=== PATIENT | male | born 1995 | race Caucasian/White ===

== ENCOUNTER 2017-12-30 08:48 | Inpatient (IN) | payer BC, OTHER ==
[~2017-12-30] VITALS: Ht 170.2 cm; Wt 58.1 kg
--- NOTE | 2017-12-30 20:40 | NUR ---
INTAKE NOTE: Patient's first assessment done in intake office. Patient is a 22 year old male. Patient appears sad, with poor eye contact. Patient noted disheveled, unkempt, uncombed. Patient is alert and oriented x4. Patient reports NKA. VS: T: 98.3, BP: 131/86, HR: 83, RR: 18, RA O2SAT: 100%. Pain: "8/10 on legs". Patient reports History of Seizures "six months ago". Patient reported usin."Oxymorphone 60-80 mg via IV every day during one and half year. Last used Oxymorphone 60-80 mg via IV) on 12/30/2017 @ AM". 2. "Methamphetamine Salts via IV occasionally". Patient "can't recalls dosage". Last used "Methamphetamine Salts via IV unspecified dosage on 12/30/2017 @ AM". Explained rules and regulations of the unit. Will further assess patient on the unit.
[2017-12-30 20:45] VITALS: BP 131/86
[2017-12-30] MEDS ORDERED: ACETAMINOPHEN 325 MG TABLET PO PRN (20:45)
[2017-12-30] MEDS ORDERED: HYDROXYZINE PAMOATE 25 MG CAPSULE PO PRN (20:45)
[2017-12-30] MEDS ORDERED: CLONIDINE HCL 0.1 MG TABLET PO PRN (20:45)
[2017-12-30] MEDS ORDERED: MIRALAX 17 GM POWD.PACK PO PRN (20:45)
[2017-12-30] MEDS ORDERED: LORAZEPAM 1 MG TABLET PO PRN (20:45)
[2017-12-30] MEDS ORDERED: BUPRENORPHINE HCL 2 MG TAB.SUBL SL PRN (20:45)
[2017-12-30] MEDS ORDERED: ONDANSETRON 4 MG/2 ML VIAL IM PRN (20:45)
[2017-12-30] MEDS ORDERED: MAG HYDROX/AL HYDROX/SIMETH 30 ML LIQUID UDC PO PRN (20:45)
[2017-12-30] MEDS ORDERED: ONDANSETRON ODT 4 MG TAB.RAPDIS SL PRN (20:45)
[2017-12-30] MEDS ORDERED: METHOCARBAMOL 750 MG TABLET PO PRN (20:45)
[2017-12-30] MEDS ORDERED: IBUPROFEN 600 MG TABLET PO PRN (20:45)
[2017-12-30] MEDS ORDERED: MAGNESIUM HYDROXIDE 30 ML LIQUID UDC PO PRN (20:45)
[2017-12-30] MEDS ORDERED: LOPERAMIDE HCL 2 MG CAPSULE PO PRN ×2 (20:45)
[2017-12-30] MEDS ORDERED: DICYCLOMINE HCL 20 MG TABLET PO PRN (20:45)
--- NOTE | 2017-12-30 20:45 | NUR ---
ADMISSION NOTE New patient is a 22year old male admitted to [facility] on 12/30/2017 @2045 for Opioid and Methamphetamine withdrawal. Patient is ambulatory with steady gait. Height: 67 inches; Weigh by standing scale: 128 lbs. Patient is alert and oriented x4. Patient reports NKA, is on Regular Diet, Full Code, is on Fall and Seizures Precautions. Patient reports withdrawal-induced seizures history on "six months ago". PMH: Anxiety, Depression, Seizures History, Fractures on Left Foot on 2015, and on Left forearm "8 months ago". UDS test provided. Respirations even and unlabored. Lung Sounds are clear throughout. Patient denies SOB, cough, and chest pain. Bowel sounds active in all four quadrants. Skin is warm and dry to touch. Patient has acne on his face: forehead, cheeks, and chin. Patient denies SI/HI. Substance Use History: 1."Oxymorphone 60-80 mg via IV every day during one and half year. Last used Oxymorphone 60-80 mg via IV) on 12/30/2017 @ AM". 2. "Methamphetamine Salts via IV occasionally". Patient "can't recalls dosage". Last used "Methamphetamine Salts via IV unspecified dosage on 12/30/2017 @ AM". Patient reports Tx History at "[place], [place] six months ago". But after "45 days started using drugs". Patient doesn't have Primary Care Provider. Patient did not bring home medications. COWS 15. Patient presented anxious, agitated, with tremors, restlessness, nervousness, sweats, c/o abdominal pain, nasal congestion, body aches, and fatigue. Doctor Singh Astudillo MD assessed patient. Orders placed. Patient was educated on plan of care and medication regimen. Patient was able to verbalize understanding. Patient oriented to his room, Nurse Call Light, and [facility] Floor. Encouraged fluids as tolerated. Encouraged to attend activities groups. All needs met. Safety measures on place. Call light within reach, bed in lowest position and locked, padded rails up bilaterally rails up bilaterally. Will continue to monitor closely. Addendum: 12/31/17 at 0718 by RUTH MUHAMMAD RN PMH: INCLUDED HEP C, ADHD
[2017-12-30] MEDS ORDERED: BUPRENORPHINE HCL 2 MG TAB.SUBL SL SCH (21:00)
[2017-12-30] MEDS ORDERED: LORAZEPAM 1 MG TABLET PO SCH (21:00)
[2017-12-30] MEDS: GABAPENTIN 300 MG CAPSULE PO SCH (21:38)
[2017-12-30] MEDS: diphenhydrAMINE 50 MG CAPSULE PO PRN (21:39)
--- NOTE | 2017-12-30 21:39 | NUR ---
PRN BENADRYL 50 MG 1 CAPSULE PO ADMINISTRATION PRN BENADRYL 50 MG PO ADMINISTRATED FOR INSOMNIA ORDERED. PATIENT TOLERATED WELL. ALL SAFETY MEASURES IN PLACE: CALL LIGHT WITHIN REACH, BED LOCKED IN LOWEST POSITION, PADDED BED RAILS UP X2. WILL CONTINUE TO MONITOR CLOSELY.
[2017-12-30 22:07] LABS: BASOPHILS # (AUTO) 0.1 K/uL (0.0-8.0); BASOPHILS % (AUTO) 0.8 % (0.0-2.0); EOSINOPHILS # (AUTO) 0.8 K/uL (0.0-0.7); HEMATOCRIT 38.3 % (36.7-47.1); HEMOGLOBIN 13.4 g/dL (12.5-16.3); LYMPHOCYTES # (AUTO) 1.9 K/uL (20.0-40.0); LYMPHOCYTES % (AUTO) 27.6 % (20.5-51.5); MEAN CORPUSCULAR HEMOGLOBIN 29.8 uug (23.8-33.4); MEAN CORPUSCULAR HGB CONC 35 g/dL (32.5-36.3); MEAN CORPUSCULAR VOLUME 85.3 fL (73.0-96.2); MONOCYTES # (AUTO) 0.4 K/uL (2.0-10.0); MONOCYTES % (AUTO) 6.2 % (0.0-11.0); NEUTROPHILS # (AUTO) 3.7 K/uL (1.8-8.9); NEUTROPHILS % (AUTO) 53.4 % (38.5-71.5); PLATELET COUNT (AUTO) 264 K/uL (152-348); WHITE BLOOD COUNT (AUTO) 6.8 K/uL (3.6-10.2)
[2017-12-30 22:17] LABS: ALANINE AMINOTRANSFERASE 252 U/L (16-63); ALKALINE PHOSPHATASE 140 U/L (50-136); ASPARTATE AMINOTRANSFERASE 109 U/L (15-37); BILIRUBIN,TOTAL 0.7 mg/dL (0.2-1.0); CARBON DIOXIDE 30 mmol/L (21-32); CHLORIDE 104 mmol/L (98-107); CREATININE 0.8 mg/dL (0.6-1.3); GLUCOSE 104 mg/dL (74-106); POTASSIUM 4.1 mmol/L (3.5-5.1); TOTAL PROTEIN, SERUM 7.4 g/dL (6.4-8.2); UREA NITROGEN, BLOOD 11 mg/dL (7-18)
[2017-12-30 22:25] LABS: *AMPHETAMINE, URINE POSITIVE (NEGATIVE); *BARBITURATE, URINE NEGATIVE (NEGATIVE); *CANNABINOID, URINE POSITIVE (NEGATIVE); *COCCAINE, URINE NEGATIVE (NEGATIVE); *OPIATE, URINE POSITIVE (NEGATIVE); *PHENCYCLIDINE SCREEN,URINE NEGATIVE (NEGATIVE)
--- NOTE | 2017-12-30 22:39 | NUR ---
RE-ASSESSMENT PRN Benadryl 50 mg PO administrated for insomnia @2138 as ordered was effective. Patient is sleeping. RR 16. Respirations are even and unlabored. All needs met. Safety measures in place: Call light within reach, bed is locked in lowest position, padded bed rails up bilaterally. Will continue to monitor closely.
--- NOTE | 2017-12-31 | NUR ---
VS REFUSED, COWS/CIWA DEFERRED. ALL NEEDS MET. SAFETY MEASURES IN PLACE: CALL LIGHT WITHIN REACH,BED IN LOWEST POSITION LOCKED, PADDED BED RAILS UP BILATERALLY. WILL TO CONTINUE TO MONITOR CLOSELY. Addendum: 12/31/17 at 0451 by RUTH MUHAMMAD RN RESPIRATIONS ARE EVEN AND UNLABORED. RR:16.
[2017-12-31 01:43] LABS: ETHANOL < 3 MG/DL (0-0)
[2017-12-31 03:00] VITALS: BP 111/69
[2017-12-31 04:00] VITALS: BP 111/69
--- NOTE | 2017-12-31 07:18 | NUR ---
END OF SHIFT NOTE: Patient presented for Opioid/ Oxymorphone and Methamphetamine withdrawal. 5 day Subutex Taper ordered , and will started today. Patient reports History of withdrawal-induced seizures "six months ago". Patient reports NKA, is on Regular Diet, Full Code, is on Fall and Seizures Precautions. PMH: Hep. C, ADHD, Anxiety, Depression, Seizures History, Fractures on Left Foot on 2016, and on Left forearm "8 months ago" Patient is alert and oriented x4. He is appears sad and worry with poor eye contact. Patient 's c/o feelings of low self-esteem, easily overwhelmed, increased anxiety, depression, and irritability. Patient denied SI/HI. Patient encouraged to expresses her feelings. Emotional support provided. Education provided to use of Relaxation Techniques: deep breathing exercises, guided imagery,and visualization. Patient noted unshaven, disheveled, unkempt, and uncombed. Education in safety and hygiene care provided. Encouraged to independently perform hygiene care. COWS=15 @2045, and COWS=9 @0400. VS refused, and COWS deferred @0000. Patient presented with anxiety, agitation, nervousness, nasal congestion, restlessness, tremors, insomnia, sweating, and body aches. PRN Benadryl 50 mg PO administrated for insomnia @2139 as ordered was effective. Calm and safety environment with minimized noises was provided. Patient slept 7 hours, intake 500 ml, voided x1. Encouraged to fluid intake as tolerated. Encourage to attended groups activities. All needs met. Safety measures in the place: Call light within reach, bed in the lowest position and locked, padded rails up x2. Patient endorsed to day shift nurse.
--- NOTE | 2017-12-31 07:26 | NUR ---
Start of Shift Notes: Received endorsement from night nurse. Patient is a 22 year old male admitted for opiate withdrawal. He was placed on a 5-day Subutex taper that will be starting this AM. Received patient in his room. Laying in bed with eyes closed. Wakes up when his name is called then goes back to sleep. Affect is flat. Room appears messy and unkept. Encouraged maintenance of personal hygiene and space. Educated patient on his current plan of care for the day and his medication regimen. Encouraged oral fluid intake and encouraged group participation to learn new skills to prevent relapse.
[2017-12-31 08:00] VITALS: BP 104/60
[2017-12-31] MEDS ORDERED: TUBERCULIN,PURIF.PROT.DERIV. 5 TU/0.1 ML TEST ID ONE (09:00)
[2017-12-31] MEDS: GABAPENTIN 300 MG CAPSULE PO SCH ×2 (09:40→21:05)
[2017-12-31] MEDS: BUPRENORPHINE HCL 2 MG TAB.SUBL SL SCH ×3 (09:40→21:05)
[2017-12-31 12:00] VITALS: BP 115/60
[2017-12-31 16:00] VITALS: BP 118/63
--- NOTE | 2017-12-31 19:04 | NUR ---
START OF SHIFT Endorsed patient is a 22year old male admitted to [facility] for Opioid and Methamphetamine withdrawal, continues 5 day Subutex taper. Patient tolerated well. Patient is alert and oriented x4. He is lying in the bed and watching TV the all day per nurse report. Patient appears to be sad, worry, with avoidant eye contact, apathetic, and hypoactive. Last CIWA =10 @1600. Patient presents with withdrawal symptoms such as anxiousness, agitation, c/o nervousness, sweating, tremors, body aches, myalgia, and restlessness. No PRN Medications administrated during last day shift. Safe and calm environment with minimized noises was provided. Encouraged to fluid intake as tolerated. Encouraged to attended groups activities. All needs met. Safety measures in the place: Call light within reach, bed in the lowest position locked, padded rails up x2. Patient endorsed by day shift nurse.
--- NOTE | 2017-12-31 19:04 | NUR ---
End of Shift Notes: Patient initiated his 5-day Subutex taper as ordered. No adverse reactions noted. Patient is tolerating taper well. VS monitored closely. No significant abnormalities noted. Withdrawal symptoms were closely monitored. Initial COWS 18, patient presented with gross tremors, anxiety, agitation, chills, restlessness, myalgia and hot flashes. Last COWS 10. Per patient, Subutex has been effective in reducing his withdrawal symptoms. Patient stayed in his room for most of the shift except when smoking. Compliant with care and treatment. Unable to participate in group and activities due to his withdrawal symptoms. All needs met and attended. Will continue to monitor closely.
[2017-12-31 20:00] VITALS: BP 126/70
[2017-12-31] MEDS: diphenhydrAMINE 50 MG CAPSULE PO PRN (21:05)
--- NOTE | 2017-12-31 21:05 | NUR ---
PRN BENADRYL 50 MG 1 CAP PO ADMINISTRATION Patient c/o insomnia. PRN Benadryl 50 mg 1 cap PO administrated with full glass of water as ordered. Patient tolerated well. All needs met. Safety measures on place. Call light within reach, bed in lowest position locked, padded rails up bilaterally. Will continue to monitor closely.
--- NOTE | 2017-12-31 22:05 | NUR ---
RE-ASSESSMENT Patient is sleeping. RR 16. Respirations even and unlabored. PRN Benadryl 50 mg 1 cap PO administrated for insomnia @2032 as ordered was effective. All needs met. Safety measures on place. Call light within reach, bed in lowest position locked, padded rails up bilaterally. Will continue to monitor closely.
[2018-01-01] VITALS: BP 123/73
[2018-01-01 04:00] VITALS: BP 116/67
--- NOTE | 2018-01-01 07:03 | NUR ---
END OF SHIFT NOTE: Patient is a 22 year old male continues 5 day Subutex Taper ordered for Opioid/ Oxymorphone and Methamphetamine withdrawal, and tolerated well. Patient remains compliant with treatment, medications, and diet regime. Patient is alert and oriented x4. The patient is disheveled, unkempt, and uncombed. His clothes are dirty and patient refused to change them. Education in safety and hygiene care provided. He was encouraged to independently perform hygiene care. Patient encouraged to expresses his feelings. Patient shows signs and symptoms of emotional instability. Emotional support provided. Education provided to use of Relaxation Techniques: deep breathing exercises, guided imagery, and visualization. Education in safety and hygiene care provided. Encouraged to independently perform hygiene care. Initial COWS=14 @2000, COWS=9 @0000. Latest COWS=8 @0400. During the my shift patient presented with moderate withdrawal symptoms of anxiety, agitation, nervousness, stomach cramps, tremors, sweating, nasal congestion, and restlessness. PRN Benadryl 50 mg PO administrated for insomnia @2105 as ordered was effective. Calm and safety environment with minimized noises was provided. Patient slept 9 hours, intake 1,730 ml, voided x2, stool x1. Encouraged to fluid intake as tolerated. Encourage to attended groups activities. All needs met. Safety measures in the place: Call light within reach, bed in the lowest position and locked, padded rails up x2. Patient endorsed to day shift nurse.
--- NOTE | 2018-01-01 07:05 | NUR ---
Start of Shift Coil Binder received report on 22 year old male admitted on 12/30/17 of medical management of Opiate and Methamphetamine withdrawals. Pt reports NKA, full code and regular diet. PMH of Hep C and PPH of anxiety and ADHD. Pt has a history of seizures, last occurring 6 months ago. Pt currently on Subutex taper, tolerating well, last COWS 8 recorded at 0400, per NOC report. Pt received Benadryl(insomnia) PRN on NOC. Coil Binder encounters pt in pts room resting with eyes closed and even and unlabored respirations. Rise and fall of chest noted. Bed in low position with wheels locked and side rails up x2. Will continue to monitor, support and encourage according to plan of care.
[2018-01-01 08:59] VITALS: BP 113/62
[2018-01-01] MEDS ORDERED: BUPRENORPHINE HCL 2 MG TAB.SUBL SL SCH (09:00)
[2018-01-01] MEDS: GABAPENTIN 300 MG CAPSULE PO SCH ×3 (09:30→20:52)
[2018-01-01 11:11] LABS: HEPATITIS B SURFACE AG Negative (Negative)
[2018-01-01 12:17] VITALS: BP 109/59
--- NOTE | 2018-01-01 14:00 | NUR ---
Mid-Shift Endorsement Utility Worker [employer] received report on 22 year old male admitted on 12/30/17 of medical management of Opiate and Methamphetamine withdrawals. Pt reports NKA, full code and regular diet. PMH of Hep C and PPH of anxiety and ADHD. Pt has a history of seizures, last occurring 6 months ago. Pt currently on Subutex taper, tolerating well, last COWS 6 recorded at 1600. No PRN medication administered by credit underwriter. Pt A/O x4, makes his needs known. Clear speech and thought process. Blunted affect with depressed mood. Pt has isolated to room and self. Withdrawn and guarded. Bed in low position with wheels locked and side rails up x2. Will continue to monitor, support and encourage according to plan of care.
--- NOTE | 2018-01-01 14:05 | NUR ---
Continuity of care Client is in bed, a/o x 4. he presents with irritable, anxious mood, flat affect. Will continue to monitor.
[2018-01-01 16:00] VITALS: BP 137/74
[2018-01-01] MEDS: BUPRENORPHINE HCL 2 MG TAB.SUBL SL SCH ×2 (16:36→20:52)
--- NOTE | 2018-01-01 19:18 | NUR ---
END OF SHIFT Endorse client to incoming nurse, client is in bed, a/o x 4. client continues to presents with anxious mood and flat affect. Client report restless legs, chills, and decreased appetite. Client was not compliant with group therapy. Last COWS 10 @ 1600. Client consumed ~75% of meals. Adequate PO fluid intake 2000mL, void x 2. Call light within reach. Will continue to monitor.
--- NOTE | 2018-01-01 19:18 | NUR ---
START OF SHIFT NOTE: Endorsed 26 year old male continues ordered 5 day Subutex taper for Opioid/Oxymorphone and Methamphetamine withdrawal. Patient is alert and oriented x4, reports NKA, is on Full Code, is on Fall and Seizures Precautions. Patient reports History of withdrawal-induced seizures "6 months ago". Patient appears anxious, worry, sad with flat affect. Patient 's c/o feelings of loneliness, increased anxiety, depression, and irritability. Patient denied SI/HI. Emotional support provided, and patient 's reassuring. Patient noted unshaven, disheveled, and uncombed. His clothes are scattered all over the floor. Education provided in safety and hygiene care. Patient's encouraged to independently perform hygiene care. CIWA=10 @1600. During day shift patient presented with anxiety, agitation, nervousness, nasal congestion, restlessness, tremors, sweating, and body aches. No PRN Medications given per day shift nurse report. Patient remains compliant with treatment, medications and diet regime. Encouraged to fluid intake as tolerated. Encourage to attended groups activities. All needs met. Safety measures in place: Call light within reach, bed is locked in lowest position, padded bed rails up bilaterally. Patient endorsed by day shift nurse. Will continue to monitor closely.
[2018-01-01 20:00] VITALS: BP 126/75
[2018-01-01] MEDS: BACLOFEN 10 MG TABLET PO SCH (20:52)
[2018-01-01] MEDS: diphenhydrAMINE 50 MG CAPSULE PO PRN (20:52)
--- NOTE | 2018-01-01 20:52 | NUR ---
PRN BENADRYL 50 MG 1 CAP PO ADMINISTRATION Patient c/o insomnia. PRN Benadryl 50 mg 1 capsule PO administrated with full glass of water as ordered. Patient tolerated well. All needs met. Safety measures on place. Call light within reach, bed in lowest position locked, padded rails up bilaterally. Will continue to monitor closely.
[2018-01-01] MEDS ORDERED: LORAZEPAM 1 MG TABLET PO SCH (21:00)
[2018-01-01] MEDS ORDERED: CLONIDINE HCL 0.1 MG TABLET PO SCH (21:00)
--- NOTE | 2018-01-01 21:52 | NUR ---
RE-ASSESSMENT Patient is sleeping. Respirations even and unlabored. RR 16. PRN Benadryl 1 cap PO administrated to patient @2051 for insomnia was effective. All needs met. Safety measures on place. Call light within reach, bed in lowest position and locked, padded rails up bilaterally. Will continue to monitor closely.
[2018-01-02] VITALS: BP 130/76
[2018-01-02 04:00] VITALS: BP 124/81
--- NOTE | 2018-01-02 07:02 | NUR ---
END OF SHIFT NOTE: Presented patient is a 26 year old male admitted for Opioid/Oxymorphone and Methamphetamine withdrawal. He is continues 5 Day Subutex Taper. Patient is alert and oriented x4. Patient appears anxious, fearful, worry with flat affect, and depressed. Encouraged to expresses his feelings. Education provided to use of Relaxation Techniques: deep breathing exercises, guided imagery, and visualization. Initial CIWA=12 @2000, CIWA=6 @0000. Latest CIWA=10 @0400: Patient presented with withdrawal symptoms of anxiety, agitation, nervousness, abdominal cramps, tremors, diaphoresis, nasal congestion, and restlessness. PRN Benadryl 50 mg PO administrated for insomnia @2051 as ordered was effective. Calm and safety environment with minimized noises was provided. Patient slept 8 hours, intake 1,076 ml, voided x2, stool x1. Encouraged to fluid intake as tolerated. Encourage to attended groups activities. All needs met. Safety measures in the place: Call light within reach, bed in the lowest position and locked, padded rails up x2. Patient endorsed to day shift nurse.
--- NOTE | 2018-01-02 07:47 | NUR ---
Start of Shift Notes: Received endorsement from night nurse. Patient is a 22 year old male admitted for opiate withdrawal. He was placed on a 5-day Subutex taper that will be starting this AM. Received patient in his room. Laying in bed with eyes closed. Wakes up when his name is called then goes back to sleep. Affect is flat. Room appears messy and unkept Candy wrappers on the floor and dirty linen on the floor. Patient appears dishveled. Encouraged maintenance of personal hygiene and space. Educated patient on his current plan of care for the day and his medication regimen. Encouraged oral fluid intake and encouraged group participation to learn new skills to prevent relapse. Addendum: 01/03/18 at 0701 by BRIE MEAD LVN Error in charting. Patient already started on 5-day Subutex taper but also on 4-day Ativan taper.
[2018-01-02 08:00] VITALS: BP 132/85
[2018-01-02] MEDS ORDERED: LORAZEPAM 1 MG TABLET PO SCH ×3 (09:00→21:00)
[2018-01-02] MEDS: BACLOFEN 10 MG TABLET PO SCH ×2 (09:03→21:19)
[2018-01-02] MEDS: BUPRENORPHINE HCL 2 MG TAB.SUBL SL SCH ×3 (09:03→21:20)
[2018-01-02] MEDS: GABAPENTIN 300 MG CAPSULE PO SCH ×2 (09:03→14:07)
[2018-01-02 12:00] VITALS: BP 132/83
[2018-01-02] MEDS ORDERED: METH-406 PO (13:30)
[2018-01-02] MEDS ORDERED: DIPH50CA37 PO (13:30)
[2018-01-02] MEDS ORDERED: CLON0.1T14 PO (13:30)
[2018-01-02] MEDS ORDERED: GABA-534 PO ×2 (13:30)
[2018-01-02] MEDS ORDERED: IBUP-1955 PO (13:30)
[2018-01-02] MEDS ORDERED: DICY20TA28 PO (13:30)
[2018-01-02] MEDS ORDERED: HYDR-3895 PO (13:30)
--- NOTE | 2018-01-02 13:30 | NUR ---
Mid Shift Notes: Patient is in his room. Laying down in bed with food next to him. Gummy bears noted on the bed. Easily arousable to touch. Breathing even and unlabored. COWS 14/CIWA 10 at 1200.
[2018-01-02 16:00] VITALS: BP 117/66
--- NOTE | 2018-01-02 19:00 | NUR ---
End of Shift Notes: Patient continues to be on 5-day Subutex and 3-day Ativan taper as ordered. No adverse reactions noted. Patient is tolerating taper well. VS monitored closely. No significant abnormalities noted. Withdrawal symptoms were closely monitored. Initial COWS 18/CIWA 14, patient presented with gross tremors, anxiety, agitation, chills, restlessness, myalgia and hot flashes. Last COWS 9/CIWA 8. Per patient, Subutex has been effective in reducing his withdrawal symptoms. Patient stayed in his room sleeping for most of the shift. Appetite fair. Patient states I just want to sleep this through. Socialization with his peers was encouraged. Compliant with care and treatment. Requires encouragement to participate in group and activities due to his withdrawal symptoms. All needs met and attended. Will continue to monitor closely.
--- NOTE | 2018-01-02 19:30 | NUR ---
START OF SHIFT Received 22 year old male patient admitted on 12/30/17 for Opiate and methamphetamine withdrawal. Pt is alert and oriented x4. He is noted to be anxious, restless, disheveled, irritable and fidgety. He complains of body aches. He continues on a 5 day Subutex taper and is tolerating well. Per endorsement, he did not receive or request PRN medications. Last COW:9, CIWA:8 at 1600. Breathing is even and unlabored, safety measures in place. Will continue to monitor.
[2018-01-02 20:00] VITALS: BP 137/82
[2018-01-02] MEDS ORDERED: GABAPENTIN 300 MG CAPSULE PO SCH (21:00)
[2018-01-02] MEDS: diphenhydrAMINE 50 MG CAPSULE PO PRN (22:03)
--- NOTE | 2018-01-02 22:03 | NUR ---
PRN BENADRYL Pt complains of insomnia. PRN Benadryl administered as ordered. Breathing even and unlabored, safety measures in place. Will monitor effectiveness.
--- NOTE | 2018-01-02 23:03 | NUR ---
PRN BENADRYL REASSESSMENT PRN medication effective. Pt is lying in bed with eyes closed noted to be asleep. Breathing is even and unlabored, safety measures in place. Will continue to monitor.
[2018-01-03] VITALS: BP 136/90
[2018-01-03 04:00] VITALS: BP 126/85
--- NOTE | 2018-01-03 06:57 | NUR ---
END OF SHIFT Pt is a 22 year old male patient admitted on 12/30/17 for Opiate and methamphetamine withdrawal. He remains alert and oriented x4. He was noted to be anxious, restless, disheveled, irritable and fidgety during the shift. He continues on a 5 day Subutex taper and 4 day Ativan and is tolerating well. At 2203 he received PRN Benadryl for insomnia. He slept a total of 8 hrs, Intake:300mL, Void: x1, BM:0, Lasts COW:9, CIWA:7 at 2000. Breathing is even and unlabored, safety measures in place. Endorsed to AM shift.
--- NOTE | 2018-01-03 07:00 | NUR ---
Start of Shift Notes: Received endorsement from night nurse. Patient is a 22 year old male admitted for opiate withdrawal. He was placed on a 5-day Subutex taper and 4-day Ativan taper. Received patient in his room. Laying in bed with eyes half closed. Wakes up when his name is called then goes back to sleep. Affect is flat. Room appears messy and unkept Candy wrappers on the floor. Patient appears disheveled. Encouraged maintenance of personal hygiene and space. Educated patient on his current plan of care for the day and his medication regimen. Encouraged oral fluid intake and encouraged group participation to learn new skills to prevent relapse.
[2018-01-03 08:00] VITALS: BP 123/78
[2018-01-03] MEDS: BUPRENORPHINE HCL 2 MG TAB.SUBL SL SCH ×2 (08:26→21:00)
[2018-01-03] MEDS: BACLOFEN 10 MG TABLET PO SCH (08:27)
[2018-01-03] MEDS: GABAPENTIN 300 MG CAPSULE PO SCH ×3 (08:27→21:00)
[2018-01-03] MEDS: LORAZEPAM 1 MG TABLET PO SCH ×2 (08:27→21:00)
[2018-01-03] MEDS: KETOROLAC TROMETHAMINE 30 MG INJ IM PRN ×2 (10:13→21:01)
--- NOTE | 2018-01-03 10:13 | NUR ---
Toradol 30 mg IM given: Patient complained of 8/10 low back pain. Non-pharmacological interventions provided but ineffective. Medicated patient with Toradol 30 mg IM as ordered. Will monitor for effectiveness.
--- NOTE | 2018-01-03 10:43 | NUR ---
Re-assessment: Toradol Patient verbalizes PL is now 3/10 from 05/14. PRN Toradol was effective in reducing low back pain.
[2018-01-03 12:00] VITALS: BP 131/86
[2018-01-03] MEDS: BACLOFEN 20 MG TABLET PO SCH ×2 (14:07→21:00)
[2018-01-03] MEDS: LIDOCAINE 5% PATCH TD SCH (14:08)
[2018-01-03 16:00] VITALS: BP 126/77
--- NOTE | 2018-01-03 19:00 | NUR ---
End of Shift Notes: Patient continues to be on 5-day Subutex and 3-day Ativan taper as ordered. No adverse reactions noted. VS monitored closely. No significant abnormalities noted. Withdrawal symptoms were closely monitored. Initial COWS 11/CIWA 10, patient presented with gross tremors, anxiety, agitation, chills, restlessness, and myalgia. Last COWS 9 /CIWA 8 . Per patient, Subutex and Ativan has been effective in reducing his withdrawal symptoms. PRN Toradol 30 mg IM given to patients right deltoid at 1013 for complain of 8/10 myalgia with help after 30 minutes. Patient was encouraged to shower, shave and keep his room tidy as well as to participate in group and activities but stayed in his room sleeping. Appetite good. Compliant with care and treatment. Requires encouragement to participate in group and activities due to his withdrawal symptoms. All needs met and attended. Will continue to monitor closely.
--- NOTE | 2018-01-03 19:20 | NUR ---
START OF SHIFT Patient is a 22-year-old male admitted on 12/30/17 for oxymorphone and meth withdrawal. Patient is currently on a 5-day Subutex taper and modified Ativan taper, tolerating well. Patients last COWS was 9, last CIWA 8 per day shift nurse. Patient received PRN Toradol IM for back pain, noted as effective. Heat packs were also provided to patient during the day. Upon assessment, patient is alert and oriented x3. Patient appears disheveled and unshaven, clothes have visible stains. Patients room is disorganized, clothes strewn about counters and floor. Patients bed is unmade, very dirty with visible food/beverage spills. Patient states "my back feels better but my anxiety is through the roof. Can I get something to help me sleep tonight?" Patient is on fall and seizure precautions, with seizure history. Safety measures in place, side rails up x2, bed locked in low position, call light within reach. Will continue to monitor.
[2018-01-03 20:00] VITALS: BP 154/95
--- NOTE | 2018-01-03 21:01 | NUR ---
PRN TORADOL Patient reports lower back pain 10/10, describing the pain as "tightness, aching." PRN Toradol IM given in patient's left deltoid. Safety measures in place, call light within reach. Heat packs were also provided by SN. Will monitor for effectiveness.
--- NOTE | 2018-01-03 21:31 | NUR ---
PRN TORADOL REASSESSMENT Patient reports lower back pain 3/10 on scale. PRN Toradol noted to be effective. Safety measures in place, call light within reach. Will continue to monitor.
[2018-01-03] MEDS: diphenhydrAMINE 50 MG CAPSULE PO PRN (22:38)
--- NOTE | 2018-01-03 22:38 | NUR ---
PRN ROBAXIN & BENADRYL Patient reports lower back pain 8/10 on pain scale. Patient reports difficulty sleeping and is requesting sleep aid. PRN Robaxin given PO, PRN Benadryl given PO. Safety measures in place, call light within reach. Will monitor for effectiveness.
--- NOTE | 2018-01-03 23:38 | NUR ---
PRN ROBAXIN & BENADRYL REASSESSMENT Patient reports "feeling sleepy" and reports lower back pain is currently 4/10 on pain scale. PRN meds effective. Safety measures in place, call light within reach. Will continue to monitor.
[2018-01-04] VITALS: BP 141/85
[2018-01-04 04:00] VITALS: BP 129/78
--- NOTE | 2018-01-04 04:00 | NUR ---
COWS & CIWA DEFERRED COWS and CIWA deferred due to patient sleeping; to be assessed and scored while patient is awake. Patient's respirations are even and unlabored, 16/min. Safety measures in place, side rails up x2, bed locked in low position, call light within reach. Will continue to monitor.
--- NOTE | 2018-01-04 07:10 | NUR ---
END OF SHIFT Patient is a 22-year-old male admitted on 12/30/17 for oxymorphone and meth withdrawal. Patient is currently on a 5-day Subutex taper and modified Ativan taper, tolerating well. Patients last COWS was 9, last CIWA 8. Patient received PRN Toradol IM for back pain as well as PRN Benadryl PO and Robaxin PO; all noted as effective. Heat packs were also provided to patient during shift superintendent caustic cresylate by SN. Patient slept for 8 hours, total intake of 1,000mL, void x2, stool x0. Patient is on fall and seizure precautions, with seizure history. Safety measures in place, side rails up x2, bed locked in low position, call light within reach. Will endorse to day shift.
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
[2018-01-04 08:32] VITALS: BP 148/87
[2018-01-04] MEDS ORDERED: LORAZEPAM 1 MG TABLET PO SCH (09:00)
[2018-01-04] MEDS ORDERED: BUPRENORPHINE HCL 2 MG TAB.SUBL SL SCH (09:00)
[2018-01-04] MEDS: LIDOCAINE 5% PATCH TD SCH (09:43)
[2018-01-04] MEDS: BACLOFEN 20 MG TABLET PO SCH ×3 (09:43→20:45)
[2018-01-04] MEDS: GABAPENTIN 300 MG CAPSULE PO SCH ×3 (09:43→20:45)
[2018-01-04] MEDS: KETOROLAC TROMETHAMINE 30 MG INJ IM PRN ×2 (11:23→21:34)
--- NOTE | 2018-01-04 11:23 | NUR ---
PRN Toradol 30mg IM administered to R deltoid for lower back pain 06/14. Call light within reach.
--- NOTE | 2018-01-04 11:53 | NUR ---
Reassess PRN Toradol 30mg IM, client reports a decrease in pain on lower back pain 3/10, but tolerable.
[2018-01-04 12:55] VITALS: BP 139/87
[2018-01-04 16:55] VITALS: BP 124/78
--- NOTE | 2018-01-04 19:05 | NUR ---
END OF SHIFT Endorse client to incoming nurse, client is in room, a/o x 4, client continues to present with depressed mood, flat affect, moist skin, decreased appetite, and fatigue. Adequate PO fluid [id number], void x 3. Client consumes 50-75% of meals. Client is not compliant with group therapy. Client completed 5 day Subutex taper, Modified 3 day Ativan taper. Last COWS 6/CIWA 5 @ 1600. Call light within reach.
[2018-01-04 20:00] VITALS: BP 133/88
--- NOTE | 2018-01-04 20:00 | NUR ---
START OF SHIFT NOTE RECEIVED REPORT FROM DAY SHIFT NURSE. PATIENT IS A 22 YEAR OLD MALE ADMITTED FOR OPIATE /METH WITHDRAWAL. PATIENT COMPLETED SUBUTEX AND ATIVAN TAPER. PATIENT IS MEDICALLY CLEARED TO DISCHARGE TOMORROW.PATIENT WAS GIVEN PRN TORADOL IM DUE TO CHRONIC BACK PAIN. PATIENT DID NOT ATTEND GROUP. IN HIS ROOM MOST OF THE SHIFT. LAST COWS 6 AND CIWA 5. RECEIVED PATIENT IN THE ROOM, RESTING. PATIENT'S ROOM DIRTY, GARBAGE AROUND THE ROOM AND CLOTHES THROWN ON FLOOR. PATIENT WITH FLAT AFFECT , DISHEVELED AND C/O LOWER BACK PAIN . SAFETY MEASURES IN PLACE. CALL LIGHT IN REACH. WILL CONTINUE TO MONITOR.
[2018-01-04] MEDS: diphenhydrAMINE 50 MG CAPSULE PO PRN (20:50)
--- NOTE | 2018-01-04 20:50 | NUR ---
PRN BENADRYL ADMINISTRATION PATIENT REQUESTS FOR SLEEP AID. WILL MONITOR FOR EFFECTIVENESS
--- NOTE | 2018-01-04 21:34 | NUR ---
PRN TORADOL IM ADMINISTRATION PATIENT C/O LOWER BACK PAIN 05/14. WILL MONITOR FOR EFFECTIVENESS
--- NOTE | 2018-01-04 22:04 | NUR ---
PRN TORADOL RE-ASSESSMENT PATIENT STATES TORADOL HELPFUL HE WAS WALKING TOWARDS HIS ROOM. HE JUST CAME BACK FROM THE PATIO SMOKING. PAIN LEVEL 2/10, TOLERABLE.
--- NOTE | 2018-01-04 22:34 | NUR ---
MASHA RO RE-ASSESSMENT PATIENT STATES TORADOL HELPFUL HE WAS WALKING TOWARDS HIS ROOM. HE JUST CAME BACK FROM THE PATIO SMOKING. PAIN LEVEL 2/10, TOLERABLE. Addendum: 01/05/18 at 0721 by YOKASTA ORNELAS LVN ERROR : TIME OF ASSESSMENT AT 2204
--- NOTE | 2018-01-04 23:30 | NUR ---
PRN BENADRYL R-ASSESSMENT PATIENT IN BED WITH EYES CLOSED. RESPIRATION EVEN AND UNLABORED. WILL CONTINUE TO MONITOR
--- NOTE | 2018-01-05 | NUR ---
COWS AND CIWA DEFERRED PATIENT IN BED WITH EYES CLOSED. VS REFUSED. RESPIRATION EVEN AND UNLABORED. WILL CONTINUE TO MONITOR
--- NOTE | 2018-01-05 04:00 | NUR ---
COWS AND CIWA DEFERRED PATIENT IN BED WITH EYES CLOSED. VS REFUSED. RESPIRATION EVEN AND UNLABORED. WILL CONTINUE TO MONITOR
--- NOTE | 2018-01-05 07:06 | NUR ---
END OF SHIFT NOTE PATIENT SLEPT 9 HOURS. FLUID INTAKE 1,365 ML. VOIDED X 1 . NO BM. RECEIVED REPORT FROM DAY SHIFT NURSE.PATIENT IS DISCHARGING TODAY. PATIENT COMPLETED SUBUTEX AND ATIVAN TAPER PATIENT WAS GIVEN PRN BENADRYL FOR SLEEP AND TORADOL IM FOR LOWER BACK PAIN 05/14. PATIENT COMPLIANT WITH MEDICATION. SAFETY MEASURES IN PLACE. CALL LIGHT IN REACH. WILL CONTINUE TO MONITOR. LAST COWS 5 AND CIWA 3.
--- NOTE | 2018-01-05 07:40 | NUR ---
START Rcvd endorse form ongoing nurse, client is in room, a/o x 4, client presents with anxious mood, flat affect, disheveled,he reports not sleeping well, being anxious about discharge this morning to [facility] this morning to continue with his treatments. Discuss discharge instructions, he verbalized understanding. Client completed modified 3 day Ativan taper for benzodiazepine withdrawal, 5 day Subutex taper for oxymorphone withdrawal. Last CIWA 5 @ 1999. PRN Toradol 30mg IM for lower back pain, noted effective. PRN Benadryl 50mg PO administered for inability to sleep, client slept 9 hrs. Call light within reach.
[2018-01-05 08:03] VITALS: BP 129/86
[2018-01-05] MEDS: BACLOFEN 20 MG TABLET PO SCH (08:44)
[2018-01-05] MEDS: GABAPENTIN 300 MG CAPSULE PO SCH (08:44)
[2018-01-05] MEDS: LIDOCAINE 5% PATCH TD SCH (08:45)
--- NOTE | 2018-01-05 09:35 | NUR ---
DISCHARGE NOTE Client discharged in stable condition with all valuable, belongings, and prescription. Client denies SI/HI. To [facility] via private car.
== END 2018-01-05 09:35 | disposition other institution (70) | DRG 895 ==
LOC: SRC 19:58
PROVIDERS: ADMIT Internal Medicine; ATTEND Internal Medicine
PROC: HZ2ZZZZ Detoxification Services for Substance Abuse Treatment (ICD-10-PCS; principal; 2017-12-30)
PROC: HZ31ZZZ Individual Counseling for Substance Abuse Treatment, Behavioral (ICD-10-PCS; 2017-12-31)
DX: F11.23 Opioid dependence with withdrawal (principal); F15.20 Other stimulant dependence, uncomplicated; B19.20 Unspecified viral hepatitis C without hepatic coma; F17.210 Nicotine dependence, cigarettes, uncomplicated; F41.9 Anxiety disorder, unspecified; F90.9 Attention-deficit hyperactivity disorder, unspecified type; F13.239 Sedative, hypnotic or anxiolytic dependence with withdrawal, unspecified; F12.90 Cannabis use, unspecified, uncomplicated; Z81.1 Family history of alcohol abuse and dependence; R74.0 Nonspecific elevation of levels of transaminase and lactic acid dehydrogenase [LDH]
CPT/HCPCS: 36415; 80307; 80324; 80346; 80349; 80361; 83735; 85025; 86580; 86592; 86705; 86803; 87340; 87806; A4663; G0480; J1885; Q0163